=== PATIENT | female | born 1995 | race African-American/Black ===

== ENCOUNTER 2016-12-24 18:19 | Emergency (ER) | payer SELFPAY ==
[~2016-12-24] VITALS: Ht 167.6 cm; Wt 124.7 kg
[2016-12-24 18:41] VITALS: BP 113/76
[2016-12-24] MEDS ORDERED: Famotidine 20 MG/ 2ML VIAL IVP ONE (18:45)
[2016-12-24 19:29] LABS: BASOPHILS % (AUTO) 2.9 % (0.0-2.0); EOSINOPHILS % (AUTO) 1.9 % (0.0-3.0); LYMPHOCYTES % (AUTO) 47.4 % (20.0-45.0); MEAN CORPUSCULAR HEMOGLOBIN 27.5 PG (27.0-31.0); MEAN CORPUSCULAR HGB CONC 32.7 G/DL (32.0-36.0); MEAN CORPUSCULAR VOLUME 84 FL (80-99); MEAN PLATELET VOLUME 6.5 FL (6.5-10.1); MONOCYTES % (AUTO) 8.8 % (1.0-10.0); PLATELET COUNT 301 K/UL (150-450); RED BLOOD COUNT 4.03 M/UL (4.20-5.40); RED CELL DISTRIBUTION WIDTH 12.9 % (11.6-14.8); WHITE BLOOD COUNT 5.4 K/UL (4.8-10.8)
[2016-12-24 19:46] LABS: APPEARANCE,URINE CLEAR; KETONES,URINE NEGATIVE (NEGATIVE); LEUKOCYTE ESTERASE ,URINE 2+ (NEGATIVE); NITRITE,URINE NEGATIVE (NEGATIVE); PH,URINE 5 (4.5-8.0); PROTEIN,URINE 1+ (NEGATIVE); UROBILINOGEN,URINE NORMAL MG/DL (0.0-1.0)
[2016-12-24 19:57] LABS: BACTERIA,URINE FEW /HPF; RBC,URINE 0-2 /HPF (0 - 2); SQUAMOUS EPITHELIAL CELL,UR FEW /LPF (NONE/OCC)
[2016-12-24 20:01] LABS: ALANINE AMINOTRANSFERASE 10 U/L (3-33); ALBUMIN/GLOBULIN RATIO 1.1 (1.0-2.7); ANION GAP 11 (5-15); ASPARTATE AMINO TRANSFERASE 13 U/L (5-40); CALCIUM 9.2 mg/dL (8.6-10.2); CARBON DIOXIDE 24 mEQ/L (20-30); CHLORIDE 102 mEQ/L (98-107); CREATININE 0.8 mg/dL (0.5-0.9); GLOMERULAR FILTRATION RATE > 60 mL/min (>60); HEMOLYSIS 1; LIPASE 36 U/L (< 60); SODIUM 137 mEQ/L (135-145); TOTAL PROTEIN 7.4 g/dL (6.6-8.7)
[2016-12-24 20:50] VITALS: BP 116/80
--- NOTE | 2016-12-24 21:40 | Emergency Room Report ---
History of Present Illness General Chief Complaint: Abdominal Pain Source: Patient Present Illness HPI The patient is a 21-year-old female presenting for upper abdominal pain which began yesterday. It is described as a 7/10 dull ache and radiates down to the mid abdomen. Possible menstrual period was one month prior. No known provoking relieving factors. She denies any medical history. She denies any other symptoms including nausea, vomiting, fever, chills, dysuria, vaginal discharge Allergies: Coded Allergies: No Known Allergies (Unverified , 12/24/16) Patient History Past Medical History: see triage record Pertinent Family History: none Last Menstrual Period: 11/27/16 Now: Yes : 1 Para: 0 Reviewed Nursing Documentation: PMH: Agreed, PSxH: Agreed Nursing Documentation-PMH Past Medical History: No Stated History Review of Systems All Other Systems: negative except mentioned in HPI Physical Exam Vital Signs Date Time Temp Pulse Resp B/P Pulse Ox O2 Delivery O2 Flow Rate FiO2 12/24/16 18:28 98.2 89 16 113/76 99 Room Air Sp02 EP Interpretation: reviewed, normal General Appearance: no apparent distress, alert, GCS 15, non-toxic Head: normocephalic, atraumatic Eyes: bilateral eye PERRL, bilateral eye normal inspection ENT: hearing grossly normal, normal pharynx, no angioedema, normal voice Neck: full range of motion, supple/symm/no masses Respiratory: chest non-tender, lungs clear, normal breath sounds, speaking full sentences Cardiovascular #1: regular rate, rhythm, no edema Gastrointestinal: normal bowel sounds, non tender, soft, non-distended, no guarding, no rebound Neurologic: alert, oriented x3, responsive, motor strength/tone normal, sensory intact, speech normal Psychiatric: judgement/insight normal, memory normal, mood/affect normal, no suicidal/homicidal ideation Skin: normal color, no rash, warm/dry, well hydrated Medical Decision Making PA Attestation Dr. Birch is my supervising physician. Patient management was discussed with my supervising physician Diagnostic Impression: Primary Impression: First trimester ER Course The patient is a 21-year-old female presenting for upper abdominal pain Differential diagnoses considered include but not limited to Early , threatened , incomplete , complete , ectopic , hemorrhagic cyst PE: Vitals WNL. NAD. Abdomen: Normal appearance. Non distended. No ecchymosis. Normal BS. Non TTP. No McBurney point tenderness. No guarding. No CVA tenderness Blood work is unremarkable except for positive and elevated beta Quant. Urinalysis unremarkable Beta Quant is too low for ultrasound. The patient was informed of these results and needs to follow up with primary doctor and [facility] This is most likely an early but patient is at high risk due to past miscarriage. She will followup as soon as possible. ER precautions given Laboratory Tests Test 12/24/16 18:50 12/24/16 19:01 Urine Color Yellow Urine Appearance Clear Urine pH 5 (4.5-8.0) Urine Specific [place] 1.025 (1.005-1.035) Urine Protein 1+ (NEGATIVE) H Urine Glucose (UA) Negative (NEGATIVE) Urine Ketones Negative (NEGATIVE) Urine Occult Blood Negative (NEGATIVE) Urine Nitrite Negative (NEGATIVE) Urine Bilirubin Negative (NEGATIVE) Urine Urobilinogen Normal MG/DL (0.0-1.0) Urine Leukocyte Esterase 2+ (NEGATIVE) H Urine RBC 0-2 /HPF (0 - 2) Urine WBC 2-4 /HPF (0 - 2) Urine Squamous Epithelial Cells Few /LPF (NONE/OCC) Urine Bacteria Few /HPF (NONE) White Blood Count 5.4 K/UL (4.8-10.8) Red Blood Count 4.03 M/UL (4.20-5.40) L Hemoglobin 11.1 G/DL (12.0-16.0) L Hematocrit 33.9 % (37.0-47.0) L Mean Corpuscular Volume 84 FL (80-99) Mean Corpuscular Hemoglobin 27.5 PG (27.0-31.0) Mean Corpuscular Hemoglobin Concent 32.7 G/DL (32.0-36.0) Red Cell Distribution Width 12.9 % (11.6-14.8) Platelet Count 301 K/UL (150-450) Mean Platelet Volume 6.5 FL (6.5-10.1) Neutrophils (%) (Auto) 39.0 % (45.0-75.0) L Lymphocytes (%) (Auto) 47.4 % (20.0-45.0) H Monocytes (%) (Auto) 8.8 % (1.0-10.0) Eosinophils (%) (Auto) 1.9 % (0.0-3.0) Basophils (%) (Auto) 2.9 % (0.0-2.0) H Sodium Level 137 mEQ/L (135-145) Potassium Level 4.0 mEQ/L (3.4-4.9) Chloride Level 102 mEQ/L (98-107) Carbon Dioxide Level 24 mEQ/L (20-30) Anion Gap 11 (5-15) Blood Urea Nitrogen 9 mg/dL (7-23) Creatinine 0.8 mg/dL (0.5-0.9) Estimate Glomerular Filtration Rate > 60 mL/min (>60) Glucose Level 92 mg/dL (74-106) Calcium Level 9.2 mg/dL (8.6-10.2) Total Bilirubin 0.4 mg/dL (0.0-1.2) Aspartate Amino Transferase (AST) 13 U/L (5-40) Alanine Aminotransferase (ALT) 10 U/L (3-33) Alkaline Phosphatase 51 U/L (35-104) Total Protein 7.4 g/dL (6.6-8.7) Albumin 3.9 g/dL (3.5-5.2) Globulin 3.5 g/dL Albumin/Globulin Ratio 1.1 (1.0-2.7) Lipase 36 U/L (< 60) Human Chorionic Gonadotropin, Qual Positive Human Chorionic Gonadotropin, Quant 776 mIU/mL Lab Results Impression CBC and CMP are unremarkable. Urinalysis is unremarkable Qualitative is positive Beta-hCG is elevated Last Vital Signs Date Time Temp Pulse Resp B/P Pulse Ox O2 Delivery O2 Flow Rate FiO2 12/24/16 20:50 98.2 84 16 116/80 99 Room Air Status: improved Disposition: HOME, SELF-CARE Condition: Improved Patient Instructions: Abdominal Pain During Additional Instructions: I discussed my findings with the patient. All questions and concerns have been answered. Treatment and medication compliance have been addressed. I advised the patient that they need to follow up with PMD in 3-5 days. Return to ED if symptoms worsen, new symptoms arise, or if needed for any reason. Patient verbalized understanding of discharge instructions. Please follow up with [facility] as soon as possible ABDULKADIR FRAGA Dec 24, 2016 21:40
== END 2016-12-24 20:50 | disposition home or self-care (01) ==
LOC: EMR 18:48
DX: O26.91 Pregnancy related conditions, unspecified, first trimester (principal); Z3A.00 Weeks of gestation of pregnancy not specified
CPT/HCPCS: 36415; 80053; 81003; 83690; 84702; 84703; 85025; 96360; 96374; 99284; S0028

== ENCOUNTER 2017-01-05 16:32 | Emergency (ER) | payer SELFPAY ==
[~2017-01-05] VITALS: Ht 167.6 cm; Wt 129.3 kg
--- NOTE | 2017-01-05 18:00 | Emergency Room Report ---
History of Present Illness General Chief Complaint: Complications Source: Patient Present Illness [facility] The patient is a 21-year-old female presenting for abdominal pain and back pain. The patient states that she is at 7 weeks gestation and has not been able to followup with [facility]. The patient's first ended in miscarriage and she states that this feels similar. She denies any vaginal bleeding. Pain is described as an 8/10 sharp sensation to the mid upper abdomen and mid back. Denies radiating pain. No known provoking relieving factors. She denies any other symptoms including N, V, F, chills, dysuria, hematuria Allergies: Coded Allergies: No Known Allergies (Unverified , 12/24/16) Patient History Past Medical History: see triage record Pertinent Family History: none Last Menstrual Period: 11/27/16 Now: Yes - 7 weeks : 2 Para: 0 Reviewed Nursing Documentation: PMH: Agreed, PSxH: Agreed Nursing Documentation-PMH Past Medical History: No Stated History Review of Systems All Other Systems: negative except mentioned in HPI Physical Exam Vital Signs Date Time Temp Pulse Resp B/P Pulse Ox O2 Delivery O2 Flow Rate FiO2 01/05/17 16:43 98.1 84 20 116/81 99 Room Air Sp02 EP Interpretation: reviewed, normal General Appearance: no apparent distress, alert, GCS 15, non-toxic Head: normocephalic, atraumatic Eyes: bilateral eye PERRL, bilateral eye normal inspection ENT: hearing grossly normal, normal pharynx, no angioedema, normal voice Neck: full range of motion, supple/symm/no masses Gastrointestinal: normal bowel sounds, soft, non-distended, no guarding, no rebound, tenderness - suprapubic Genitourinary: normal inspection, no CVA tenderness Musculoskeletal: back normal, gait/station normal, normal range of motion, non- tender Neurologic: alert, oriented x3, responsive, motor strength/tone normal, sensory intact, speech normal Skin: normal color, no rash, warm/dry, well hydrated Medical Decision Making PA Attestation Dr. Hernandez is my supervising physician. Patient management was discussed with my supervising physician Diagnostic Impression: Primary Impression: Urinary tract infection Qualified Codes: N30.01 - Acute cystitis with hematuria Additional Impression: First trimester ER Course The patient is a 21 yo F presenting with abdominal pain Differential diagnoses considered include but not limited to , threatened , hemorrhage, ectopic , hemorrhagic cyst PE: NAD TTP over suprapubic region only. No edema. Otherwise unremarkable Labs: CBC, CMP unremarkable beta quant appropriate UA shows bacterial infection first trimester . Viable. 6 weeks by size. See official US report. The patient is placed on keflex and needs to see her OB ALEX. ER precautions given Laboratory Tests Test 01/05/17 17:45 White Blood Count 4.6 K/UL (4.8-10.8) L Red Blood Count 3.61 M/UL (4.20-5.40) L Hemoglobin 10.5 G/DL (12.0-16.0) L Hematocrit 31.0 % (37.0-47.0) L Mean Corpuscular Volume 86 FL (80-99) Mean Corpuscular Hemoglobin 29.0 PG (27.0-31.0) Mean Corpuscular Hemoglobin Concent 33.7 G/DL (32.0-36.0) Red Cell Distribution Width 13.1 % (11.6-14.8) Platelet Count 258 K/UL (150-450) Mean Platelet Volume 6.6 FL (6.5-10.1) Neutrophils (%) (Auto) 41.1 % (45.0-75.0) L Lymphocytes (%) (Auto) 46.1 % (20.0-45.0) H Monocytes (%) (Auto) 9.8 % (1.0-10.0) Eosinophils (%) (Auto) 1.8 % (0.0-3.0) Basophils (%) (Auto) 1.2 % (0.0-2.0) Urine Color Yellow Urine Appearance Slightly cloudy Urine pH 5 (4.5-8.0) Urine Specific [place] 1.025 (1.005-1.035) Urine Protein 1+ (NEGATIVE) H Urine Glucose (UA) Negative (NEGATIVE) Urine Ketones Negative (NEGATIVE) Urine Occult Blood 1+ (NEGATIVE) H Urine Nitrite Negative (NEGATIVE) Urine Bilirubin Negative (NEGATIVE) Urine Urobilinogen Normal MG/DL (0.0-1.0) Urine Leukocyte Esterase 3+ (NEGATIVE) H Urine RBC 2-4 /HPF (0 - 2) H Urine WBC 5-10 /HPF (0 - 2) H Urine Squamous Epithelial Cells Few /LPF (NONE/OCC) Urine Bacteria Moderate /HPF (NONE) H Urine Yeast Few /HPF (NONE) H Sodium Level 139 mEQ/L (135-145) Potassium Level 3.9 mEQ/L (3.4-4.9) Chloride Level 103 mEQ/L (98-107) Carbon Dioxide Level 27 mEQ/L (20-30) Anion Gap 9 (5-15) Blood Urea Nitrogen 8 mg/dL (7-23) Creatinine 0.7 mg/dL (0.5-0.9) Estimate Glomerular Filtration Rate > 60 mL/min (>60) Glucose Level 90 mg/dL (74-106) Calcium Level 9.4 mg/dL (8.6-10.2) Total Bilirubin 0.5 mg/dL (0.0-1.2) Aspartate Amino Transferase (AST) 13 U/L (5-40) Alanine Aminotransferase (ALT) 10 U/L (3-33) Alkaline Phosphatase 40 U/L (35-104) Total Protein 6.4 g/dL (6.6-8.7) L Albumin 4.0 g/dL (3.5-5.2) Globulin 2.4 g/dL Albumin/Globulin Ratio 1.6 (1.0-2.7) Human Chorionic Gonadotropin, Quant 67327 mIU/mL Lab Results Impression CBC, CMP unremarkable beta quant appropriate UA shows bacterial infection CT/MRI/US Diagnostic Results CT/MRI/US Diagnostic Results : Imaging Test Ordered: OB US Impression first trimester . Viable. 6 weeks by size. See official US report. Last Vital Signs Date Time Temp Pulse Resp B/P Pulse Ox O2 Delivery O2 Flow Rate FiO2 01/05/17 16:43 98.1 84 20 116/81 99 Room Air Status: improved Disposition: HOME, SELF-CARE Condition: Improved Scripts Cephalexin* (KEFLEX*) 250 Mg Capsule 250 MG ORAL EVERY 6 HOURS, #28 CAP 0 Refills Prov: ABDULKADIR FRAGA 01/05/17 Referrals: NOT CHOSEN [facility]/,REFERRING (PCP) ABDULKADIR FRAGA Jan 05, 2017 18:00
[2017-01-05 18:18] LABS: BASOPHILS % (AUTO) 1.2 % (0.0-2.0); EOSINOPHILS % (AUTO) 1.8 % (0.0-3.0); LYMPHOCYTES % (AUTO) 46.1 % (20.0-45.0); MEAN CORPUSCULAR HGB CONC 33.7 G/DL (32.0-36.0); MEAN CORPUSCULAR VOLUME 86 FL (80-99); MEAN PLATELET VOLUME 6.6 FL (6.5-10.1); MONOCYTES % (AUTO) 9.8 % (1.0-10.0); NEUTROPHILS % (AUTO) 41.1 % (45.0-75.0); PLATELET COUNT 258 K/UL (150-450); RED BLOOD COUNT 3.61 M/UL (4.20-5.40); RED CELL DISTRIBUTION WIDTH 13.1 % (11.6-14.8); WHITE BLOOD COUNT 4.6 K/UL (4.8-10.8)
[2017-01-05 18:27] LABS: ALANINE AMINOTRANSFERASE 10 U/L (3-33); ALBUMIN/GLOBULIN RATIO 1.6 (1.0-2.7); ANION GAP 9 (5-15); ASPARTATE AMINO TRANSFERASE 13 U/L (5-40); CALCIUM 9.4 mg/dL (8.6-10.2); CARBON DIOXIDE 27 mEQ/L (20-30); CHLORIDE 103 mEQ/L (98-107); CREATININE 0.7 mg/dL (0.5-0.9); GLOMERULAR FILTRATION RATE > 60 mL/min (>60); HEMOLYSIS 6; POTASSIUM 3.9 mEQ/L (3.4-4.9); SODIUM 139 mEQ/L (135-145); TOTAL PROTEIN 6.4 g/dL (6.6-8.7)
[2017-01-05 18:36] LABS: APPEARANCE,URINE SLIGHTLY CLOUDY; KETONES,URINE NEGATIVE (NEGATIVE); LEUKOCYTE ESTERASE ,URINE 3+ (NEGATIVE); NITRITE,URINE NEGATIVE (NEGATIVE); PH,URINE 5 (4.5-8.0); PROTEIN,URINE 1+ (NEGATIVE); UROBILINOGEN,URINE NORMAL MG/DL (0.0-1.0)
[2017-01-05 18:42] LABS: BACTERIA,URINE MODERATE /HPF; SQUAMOUS EPITHELIAL CELL,UR FEW /LPF (NONE/OCC)
[2017-01-05 18:43] LABS: YEAST,URINE FEW /HPF
[2017-01-05 19:01] VITALS: BP 114/72
[2017-01-05] MEDS ORDERED: KEFLEX250 MG ORAL (19:06)
[2017-01-05 19:27] VITALS: BP 114/72
--- NOTE | 2017-01-06 09:35 | Diagnostic Imaging Report ---
Indication: PAIN pelvic pain, positive test Technique: Transabdominal and transvaginal images Comparison: None Findings: Uterus measures 8.2 cm length by 6 cm AP. Within the endometrium, there is a gestational sac. This demonstrates heart activity, heart rate 103 beats per minute. There is also a yolk sac. Crellin-rump length is 4.4 mm, corresponding to estimated gestational age 6 weeks one day. Thin rim of increased echogenicity is seen at the periphery of the decidual reaction, could indicate a very small subchorionic bleed. No myometrial abnormality. The right ovary measures 4.8 cm in length, contains a 4.2 cm cyst with an irregular mural nodule. This demonstrates normal blood flow. The left is only equivocally visualized. No free cul-de-sac fluid Impression: 6 week one day, by crown-rump length measurement, single live intrauterine Equivocal minimal subchorionic hemorrhage 4.2 cm right ovarian cyst. Probably a corpus luteum. Mural nodule probably reflects a small amount of intracystic hemorrhage. Recommend followup sonography to assess for stability Note inability to confidently visualize the left ovary
== END 2017-01-05 19:15 | disposition home or self-care (01) ==
LOC: EMR 17:13
DX: O23.41 Unspecified infection of urinary tract in pregnancy, first trimester (principal); Z3A.01 Less than 8 weeks gestation of pregnancy; N83.201 Unspecified ovarian cyst, right side
CPT/HCPCS: 36415; 76801; 76830; 80053; 81003; 84702; 85025; 87086; 99284